=== PATIENT | male | born 1950 | race Caucasian/White ===

== ENCOUNTER 2018-02-26 11:48 | Emergency (ER) | payer MEDICARE ==
[~2018-02-26] VITALS: Ht 175.3 cm; Wt 74.8 kg
--- NOTE | 2018-02-27 20:43 | EKG ---
[facility] [address] [facility] [place], [place] [address] Signed Normal sinus rhythm Normal ECG No previous ECGs available Confirmed by MICHAEL SHARP DO ([id number]) on 02/27/2018 8:43:36 PM Electronically Signed By: MICHAEL SHARP DO 02/27/182042 PATIENT NAME: TAWANNA PANDYA Electrocardiogram DATE OF : 50 PHYSICIAN: MICHAEL SHARP DO REPORT #: [id number] REPORT IS CONFIDENTIAL AND NOT TO BE RELEASED WITHOUT AUTHORIZATION
== END 2018-02-26 15:33 | disposition home or self-care (01) ==
LOC: ED 11:48
DX: M79.602 Pain in left arm (principal); F17.200 Nicotine dependence, unspecified, uncomplicated; Z88.1 Allergy status to other antibiotic agents
CPT/HCPCS: 80053; 84484; 85025; 93005; 93010; 99284